=== PATIENT | male | born 1945 | race Caucasian/White ===

== ENCOUNTER 2021-01-15 01:57 | Inpatient (IN) ==
[2021-01-15] MEDS ORDERED: NS 0.9% 1000 ml BAG 1,000 ML IV ONE (02:15)
[2021-01-15 03:19] LABS: ABS Eosinophils 0.1 10^3/ul (0-0.6); ABS Lymphocytes 0.5 10^3/ul (1.0-4.8); ABS Monocytes 0.8 10^3/ul (0-0.8); ABS Neutrophils 7.7 10^3/ul (1.5-7.7); Eosinophil % 1.4 %; Hematocrit 39 % (42-52); Hemoglobin 13.4 g/dL (14.0-18.0); Mean Corpuscular HGB Conc 35 g/dL (31-36); Mean Corpuscular Hemoglobin 30 pg (27-31); Mean Corpuscular Volume 86 fL (80-94); Mean Platelet Volume 8.7 fL (7.4-10.4); Platelet Count 144 10^3/uL (150-450); Red Blood Count 4.53 10^6 /uL (4.18-5.48); Red Cell Distribution Width 15 % (10-15); White Blood Count 9.2 10^3/uL (3.5-10.8)
[2021-01-15 03:36] LABS: Albumin 3.2 g/dL (3.2-5.2); Albumin/Globulin Ratio 1.2 (1-3); C Reactive Protein 128.51 mg/L (<8.01); Calcium 8.4 mg/dL (8.6-10.3); EGFR African American 11.8 (>60); EGFR Non-African American 9.7 (>60); Globulin 2.7 g/dL (2-4); Potassium 4.7 mmol/L (3.5-5.0); Total Bilirubin 0.6 mg/dL (0.2-1.0); Total Protein 5.9 g/dL (6.4-8.9)
[2021-01-15] MEDS ORDERED: Lactated Ringers 1000 ml BAG 1,000 ML IV SCH ×2 (04:00→06:07)
[2021-01-15] MEDS ORDERED: Ondansetron 4 mg VIAL 2 MG/ML 2 ml VIAL IV PRN (04:55)
[2021-01-15 06:14] LABS: Urine Appearance Turbid; Urine Bilirubin Negative (Negative); Urine Blood 3+ (Negative); Urine Color Amber; Urine Glucose Negative (Negative); Urine Ketones Negative (Negative); Urine Nitrite Negative (Negative); Urine Protein 2+(100 mg/dL) (Negative); Urine Specific Gravity 1.009 (1.002-1.030); Urine Urobilinogen Negative (Negative)
[2021-01-15 06:28] LABS: Urine Bacteria 1+ (Absent); Urine Red Blood Cell 3+(>10/hpf) (Absent); Urine White Blood Cell 3+(>20/hpf) (Absent)
[2021-01-15] MEDS: Cefepime 2 GM in Dextrose 2 GM/50 ML BAG IV SCH (08:16)
[2021-01-15 08:47] LABS: ABS Eosinophils 0.1 10^3/ul (0-0.6); ABS Lymphocytes 0.6 10^3/ul (1.0-4.8); ABS Monocytes 0.7 10^3/ul (0-0.8); ABS Neutrophils 7.1 10^3/ul (1.5-7.7); Eosinophil % 1.4 %; Hematocrit 40 % (42-52); Hemoglobin 13.6 g/dL (14.0-18.0); Lymphocyte % 6.6 %; Mean Corpuscular HGB Conc 34 g/dL (31-36); Mean Corpuscular Hemoglobin 29 pg (27-31); Mean Corpuscular Volume 86 fL (80-94); Mean Platelet Volume 8.5 fL (7.4-10.4); Platelet Count 131 10^3/uL (150-450); Red Blood Count 4.67 10^6 /uL (4.18-5.48); Red Cell Distribution Width 15 % (10-15); White Blood Count 8.5 10^3/uL (3.5-10.8)
[2021-01-15 09:05] LABS: Albumin 3.2 g/dL (3.2-5.2); Albumin/Globulin Ratio 1.1 (1-3); C Reactive Protein 130.41 mg/L (<8.01); Calcium 8.3 mg/dL (8.6-10.3); EGFR African American 11.5 (>60); EGFR Non-African American 9.5 (>60); Globulin 2.8 g/dL (2-4); Potassium 4.7 mmol/L (3.5-5.0); Total Bilirubin 0.6 mg/dL (0.2-1.0)
[2021-01-15] MEDS: metroNIDAZOLE IV 500 MG/100ML 500 MG/100 ML BAG IVPB SCH ×2 (09:30→16:54)
[2021-01-16] MEDS: metroNIDAZOLE IV 500 MG/100ML 500 MG/100 ML BAG IVPB SCH ×3 (00:57→16:47)
[2021-01-16 06:22] LABS: Calcium 8.3 mg/dL (8.6-10.3); EGFR African American 10.5 (>60); EGFR Non-African American 8.6 (>60)
[2021-01-16 06:30] LABS: Potassium 5.2 mmol/L (3.5-5.0)
[2021-01-16 06:52] LABS: ABS Eosinophils 0.2 10^3/ul (0-0.6); ABS Lymphocytes 0.5 10^3/ul (1.0-4.8); ABS Monocytes 0.7 10^3/ul (0-0.8); ABS Neutrophils 6.2 10^3/ul (1.5-7.7); Eosinophil % 2.6 %; Hematocrit 39 % (42-52); Lymphocyte % 6.6 %; Mean Corpuscular HGB Conc 34 g/dL (31-36); Mean Corpuscular Hemoglobin 29 pg (27-31); Mean Corpuscular Volume 86 fL (80-94); Mean Platelet Volume 8.7 fL (7.4-10.4); Platelet Count 144 10^3/uL (150-450); Red Blood Count 4.48 10^6 /uL (4.18-5.48); Red Cell Distribution Width 15 % (10-15); White Blood Count 7.6 10^3/uL (3.5-10.8)
[2021-01-16] MEDS: Cefepime 2 GM in Dextrose 2 GM/50 ML BAG IV SCH (08:08)
[2021-01-16] MEDS ORDERED: NS 0.9% 500 ml BAG 500 ML IV ONE (08:46)
[2021-01-16] MEDS ORDERED: Mirabegron 50 mg ER TAB (NF) PO SCH (09:00)
[2021-01-17] MEDS: metroNIDAZOLE IV 500 MG/100ML 500 MG/100 ML BAG IVPB SCH ×3 (00:41→17:53)
[2021-01-17 06:17] LABS: Calcium 8.2 mg/dL (8.6-10.3); EGFR African American 11.3 (>60); EGFR Non-African American 9.3 (>60); Potassium 4.7 mmol/L (3.5-5.0)
[2021-01-17] MEDS: Cefepime 2 GM in Dextrose 2 GM/50 ML BAG IV SCH (10:17)
[2021-01-17 17:46] LABS: Venous Bicarbonate HCO3 20.8 mmol/L (24-28)
[2021-01-18] MEDS: metroNIDAZOLE IV 500 MG/100ML 500 MG/100 ML BAG IVPB SCH ×3 (01:18→17:05)
[2021-01-18 06:33] LABS: Calcium 8.3 mg/dL (8.6-10.3); EGFR African American 11.9 (>60); EGFR Non-African American 9.9 (>60)
[2021-01-18] MEDS: Cefepime 2 GM in Dextrose 2 GM/50 ML BAG IV SCH (09:15)
[2021-01-18] MEDS ORDERED: Bumetanide IV 0.25 MG/ML 4 ml VIAL (1 mg) SLOW PUSH ONE (14:32)
[2021-01-19] MEDS: metroNIDAZOLE IV 500 MG/100ML 500 MG/100 ML BAG IVPB SCH ×2 (01:16→09:47)
[2021-01-19] MEDS: Cefepime 2 GM in Dextrose 2 GM/50 ML BAG IV SCH (08:50)
[2021-01-19 09:20] LABS: ABS Eosinophils 0.3 10^3/ul (0-0.6); ABS Lymphocytes 0.5 10^3/ul (1.0-4.8); ABS Monocytes 0.5 10^3/ul (0-0.8); ABS Neutrophils 6.3 10^3/ul (1.5-7.7); Eosinophil % 3.7 %; Hematocrit 39 % (42-52); Hemoglobin 13.1 g/dL (14.0-18.0); Lymphocyte % 6.8 %; Mean Corpuscular HGB Conc 34 g/dL (31-36); Mean Corpuscular Hemoglobin 29 pg (27-31); Mean Corpuscular Volume 86 fL (80-94); Mean Platelet Volume 8.3 fL (7.4-10.4); Platelet Count 149 10^3/uL (150-450); Red Blood Count 4.51 10^6 /uL (4.18-5.48); Red Cell Distribution Width 15 % (10-15); White Blood Count 7.7 10^3/uL (3.5-10.8)
[2021-01-19 09:37] LABS: Calcium 8.6 mg/dL (8.6-10.3); EGFR African American 13.5 (>60); EGFR Non-African American 11.2 (>60)
[2021-01-19] MEDS ORDERED: Buffered Lidocaine 1% SYRIN 1 ml INTRADERM ONE (11:34)
[2021-01-19 15:29] VITALS: BP 119/69
[2021-01-19 21:03] LABS: C Reactive Protein 58.21 mg/L (<8.01)
[2021-01-20] MEDS ORDERED: cefTRIAXone 2 GM ADDV.VIAL 2 GM in NS 0.9% 100 ml BAG 100 ML IV SCH (08:00)
== END 2021-01-19 17:25 | disposition home or self-care (01) | DRG 372 ==
LOC: ED 01:57 → SSU 04:55
PROVIDERS: ADMIT Internal Medicine; ATTEND Internal Medicine

== ENCOUNTER 2021-01-28 08:23 | Observation (INO) ==
[2021-01-28 09:30] LABS: ABS Lymphocytes 0.4 10^3/ul (1.0-4.8); ABS Monocytes 0.3 10^3/ul (0-0.8); ABS Neutrophils 7.1 10^3/ul (1.5-7.7); Eosinophil % 0.2 %; Hematocrit 40 % (42-52); Hemoglobin 13.1 g/dL (14.0-18.0); Lymphocyte % 5.1 %; Mean Corpuscular HGB Conc 33 g/dL (31-36); Mean Corpuscular Hemoglobin 28 pg (27-31); Mean Corpuscular Volume 86 fL (80-94); Mean Platelet Volume 8.7 fL (7.4-10.4); Platelet Count 187 10^3/uL (150-450); Red Blood Count 4.61 10^6 /uL (4.18-5.48); Red Cell Distribution Width 15 % (10-15); White Blood Count 7.8 10^3/uL (3.5-10.8)
[2021-01-28 09:54] LABS: Albumin 3.5 g/dL (3.2-5.2); Albumin/Globulin Ratio 1.1 (1-3); C Reactive Protein 6.42 mg/L (<8.01); Calcium 8.8 mg/dL (8.6-10.3); EGFR African American 24.5 (>60); EGFR Non-African American 20.3 (>60); Globulin 3.1 g/dL (2-4); Potassium 4.5 mmol/L (3.5-5.0); Total Bilirubin 0.4 mg/dL (0.2-1.0); Total Protein 6.6 g/dL (6.4-8.9); Troponin I 0.01 ng/mL (<0.03)
[2021-01-28] MEDS ORDERED: Acetaminophen IV 1 GM/100ML 100 ML IV SCH (10:00)
[2021-01-28] MEDS ORDERED: Morphine 4 MG/ML VIAL (1 ml) IV ONE ×2 (11:18→15:32)
[2021-01-28 13:19] LABS: Urine Appearance Cloudy; Urine Bilirubin Negative (Negative); Urine Blood 3+ (Negative); Urine Color Yellow; Urine Glucose Negative (Negative); Urine Ketones Negative (Negative); Urine Nitrite Negative (Negative); Urine Protein 3+(>=500 mg/dL) (Negative); Urine Urobilinogen Negative (Negative)
[2021-01-28] MEDS ORDERED: Al Hydrox/Mg Hydrox/Simet LIQ 30 ML UDC PO ONE (13:19)
[2021-01-28 13:45] LABS: Urine Bacteria Absent (Absent); Urine Red Blood Cell 3+(>10/hpf) (Absent); Urine Squamous Epithelial Cell Present (Absent); Urine White Blood Cell 1+(6-10/hpf) (Absent)
[2021-01-28] MEDS ORDERED: cefTRIAXone 2 GM ADDV.VIAL 2 GM in NS 0.9% 100 ml BAG 100 ML IV SCH (19:30)
[2021-01-28] MEDS: Pantoprazole VIAL 40 MG VIAL IV SCH (20:39)
[2021-01-29] MEDS: Pantoprazole VIAL 40 MG VIAL IV SCH (04:59)
[2021-01-29 06:00] LABS: Hematocrit 40 % (42-52); Hemoglobin 13.1 g/dL (14.0-18.0); Mean Corpuscular HGB Conc 33 g/dL (31-36); Mean Corpuscular Hemoglobin 28 pg (27-31); Mean Corpuscular Volume 86 fL (80-94); Mean Platelet Volume 8.7 fL (7.4-10.4); Platelet Count 191 10^3/uL (150-450); Red Blood Count 4.62 10^6 /uL (4.18-5.48); Red Cell Distribution Width 15 % (10-15); White Blood Count 11.5 10^3/uL (3.5-10.8)
[2021-01-29 06:23] LABS: Calcium 8.6 mg/dL (8.6-10.3); EGFR African American 25.7 (>60); EGFR Non-African American 21.2 (>60); Magnesium 1.5 mg/dL (1.9-2.7); Potassium 4.4 mmol/L (3.5-5.0)
[2021-01-29] MEDS ORDERED: Magnesium Sulfate 2 gm BAG 2 GM/50 ML BAG IVPB ONE (08:56)
[2021-01-29] MEDS ORDERED: Aspirin EC 81 mg TAB.EC (enteric coated) PO SCH (09:00)
[2021-01-29] MEDS ORDERED: Mirabegron 50 mg ER TAB (NF) PO SCH (09:00)
[2021-01-29 11:48] VITALS: BP 99/61
[2021-01-29 13:15] LABS: ABS Basophils 0.1 10^3/ul (0-0.2); ABS Lymphocytes 0.5 10^3/ul (1.0-4.8); ABS Monocytes 0.8 10^3/ul (0-0.8); ABS Neutrophils 11.2 10^3/ul (1.5-7.7); Eosinophil % 0.1 %; Hematocrit 39 % (42-52); Lymphocyte % 3.6 %; Mean Corpuscular HGB Conc 33 g/dL (31-36); Mean Corpuscular Hemoglobin 28 pg (27-31); Mean Corpuscular Volume 86 fL (80-94); Mean Platelet Volume 8.6 fL (7.4-10.4); Platelet Count 192 10^3/uL (150-450); Red Blood Count 4.58 10^6 /uL (4.18-5.48); Red Cell Distribution Width 15 % (10-15); White Blood Count 12.6 10^3/uL (3.5-10.8)
== END 2021-01-29 15:43 | disposition home or self-care (01) ==
LOC: ED 08:23 → INTOOBSV 17:21 → MEDTELE 17:21
PROVIDERS: ADMIT Internal Medicine; ATTEND Internal Medicine

== ENCOUNTER 2022-11-19 15:47 | Inpatient (IN) ==
[2022-11-19 16:52] LABS: ABS Basophils 0.2 10^3/uL (0.0-0.1); ABS Lymphocytes 0.1 10^3/uL (1.0-4.8); ABS Monocytes 0.2 10^3/uL (0.0-1.1); ABS Neutrophils 13.1 10^3/uL (1.5-7.6); ABS Nucleated RBC 0.03 10^3/ul; Hematocrit 44.6 % (38-53); Hemoglobin 14.7 g/dL (13.2-16.3); Lymphocyte % 0.7 %; Mean Corpuscular Hemoglobin 28.5 pg (27-33); Mean Corpuscular Hgb Conc 33.1 g/dL (31-36); Mean Corpuscular Volume 86.1 fL (80-97); Mean Platelet Volume 8.9 fL (7.5-11.2); Nucleated Red Blood Cells % 0.2 /100 WBC (0.0-0.4); Platelet Count 57 10^3/uL (150-450); Red Blood Count 5.18 10^6/uL (4.06-5.63); Red Cell Distribution Width 19.1 % (12-17); White Blood Count 13.5 10^3/uL (3.6-10.2)
[2022-11-19 17:06] LABS: ALT 17 U/L (7-52); AST 20 U/L (13-39); Albumin 2.9 g/dL (3.2-5.2); Albumin/Globulin Ratio 1.3 (1-3); Alkaline Phosphatase 53 U/L (35-149); Anion Gap 8 mmol/L (2-16); Blood Urea Nitrogen 66 mg/dL (6-24); CO2 Carbon Dioxide 19 mmol/L (22-32); Calcium 8.5 mg/dL (8.6-10.3); Chloride 114 mmol/L (101-111); Creatinine, Serum 2.65 mg/dL (0.67-1.17); Globulin 2.2 g/dL (2-4); Glucose 115 mg/dL (70-100); Lipase < 10 U/L (11.0-82.0); Magnesium 1.7 mg/dL (1.9-2.7); Phosphorus 4.4 mg/dL (2.5-5.0); Potassium 4.8 mmol/L (3.5-5.0); Sodium 141 mmol/L (135-145); Total Protein 5.1 g/dL (6.4-8.9); eGFR CKD-EPI 23.8 (>60)
[2022-11-19 18:05] LABS: Urine Appearance Cloudy; Urine Specific Gravity 1.014 (1.002-1.030)
[2022-11-19 18:06] LABS: Urine Color Red
[2022-11-19] MEDS ORDERED: Piperacillin/Tazobac ADVAN 3.375 GM in NS 0.9% 100 ml BAG 100 ML IV ONE (18:36)
[2022-11-19] MEDS ORDERED: Piperacillin/Tazobac 3.375 GM ADVAN ONE (19:24)
[2022-11-19] MEDS ORDERED: Prothrombin Complex Conc. DOSE = Units Factor IX (nine) IV SLOW PU ONE (19:50)
[2022-11-19] MEDS ORDERED: Ondansetron 4 mg VIAL 2 MG/ML 2 ml VIAL IV PRN (20:32)
[2022-11-19] MEDS ORDERED: Phenylephrine 40 mcg/mL 10mL (400mcg) SYRINGE ONE (20:35)
[2022-11-19] MEDS ORDERED: Rocuronium 50 mg VIAL 10 mg/ml 5 ml VIAL (50 mg) ONE ×2 (20:35→23:01)
[2022-11-19] MEDS ORDERED: Dexamethasone IV 4 MG/ML VIAL 1 ml VIAL ONE (20:35)
[2022-11-19] MEDS ORDERED: Ondansetron 4 mg VIAL 2 MG/ML 2 ml VIAL ONE (20:35)
[2022-11-19] MEDS ORDERED: Propofol 10 MG/ML 20 ML BTL ONE (20:35)
[2022-11-19] MEDS ORDERED: Lidocaine 2% PF 5 ML VIAL ONE (20:35)
[2022-11-19] MEDS ORDERED: Midazolam 5 mg/5 ml VIAL 1 mg/ml 5 ml VIAL (5 mg) ONE (20:35)
[2022-11-19] MEDS ORDERED: fentaNYL 250 mcg/5 ml 50 MCG/ML 5 ml VIAL (250 MCG) ONE (20:36)
[2022-11-19] MEDS ORDERED: Ketamine HCL 50 mg/ml 10 ml VIAL (500 MG) ONE (20:36)
[2022-11-19] MEDS ORDERED: Magnesium Sulfate 2 gm BAG 2 GM/50 ML BAG IVPB ONE (20:56)
[2022-11-19] MEDS ORDERED: Hydrocortisone INJ 100 MG/2ML 2 ML VIAL IV SCH (21:00)
[2022-11-19] MEDS ORDERED: Zosyn per Pharmacy NOTE FOLLOW UP SCH (21:00)
[2022-11-19] MEDS ORDERED: Hydrocortisone INJ 100 MG VIAL IV SCH (21:02)
[2022-11-19] MEDS ORDERED: Bupivacaine 0.25% EPI 200,000 30 ML SDV ONE (21:31)
[2022-11-19] MEDS ORDERED: Phenylephrine IV 10 MG/ML 1 ml VIAL ONE (22:48)
[2022-11-19] MEDS ORDERED: Acetaminophen IV 1 GM/100ML 1,000 MG/100 ML BAG IV ONE (23:13)
[2022-11-19] MEDS ORDERED: Furosemide 20 mg/2 ml IV VIAL ONE (23:21)
[2022-11-19] MEDS ORDERED: Naloxone 0.4 mg VIAL 0.4 mg/ml 1 ml VIAL IV PRN (23:58)
[2022-11-19] MEDS ORDERED: fentaNYL 100 mcg/2 ml 50 MCG/ML VIAL IV PRN (23:58)
[2022-11-19] MEDS ORDERED: HYDROmorphone 1 MG/1 ML SYRINGE IV PRN (23:58)
[2022-11-20] MEDS ORDERED: ZOSYN 3.375 GM Q8H per EXTENDED INFUSION IV SCH
[2022-11-20] MEDS ORDERED: HYDROmorphone 0.5 MG/0.5 ML SYRINGE ONE (00:10)
[2022-11-20] MEDS ORDERED: Naloxone 0.4 mg VIAL 0.4 mg/ml 1 ml VIAL IV PUSH PRN (00:55)
[2022-11-20] MEDS ORDERED: HYDROmorphone PCA 20 MG/20 ML PCA.SYRING PCA SCH (01:00)
[2022-11-20] MEDS ORDERED: Magnesium Sulfate 2 gm BAG 2 GM/50 ML BAG IVPB ONE (01:01)
[2022-11-20] MEDS ORDERED: Hydrocortisone INJ 100 MG VIAL IV ONE (02:00)
[2022-11-20] MEDS: ZOSYN 3.375 GM Q8H per EXTENDED INFUSION IV SCH ×3 (02:20→18:04)
[2022-11-20 06:00] LABS: ABS Basophils 0.1 10^3/uL (0.0-0.1); ABS Lymphocytes 0.1 10^3/uL (1.0-4.8); ABS Monocytes 0.2 10^3/uL (0.0-1.1); ABS Neutrophils 9.1 10^3/uL (1.5-7.6); ABS Nucleated RBC 0.01 10^3/ul; Hematocrit 42.6 % (38-53); Lymphocyte % 0.6 %; Mean Corpuscular Hemoglobin 28.8 pg (27-33); Mean Corpuscular Hgb Conc 32.9 g/dL (31-36); Mean Corpuscular Volume 87.6 fL (80-97); Nucleated Red Blood Cells % 0.1 /100 WBC (0.0-0.4); Platelet Count 48 10^3/uL (150-450); Red Blood Count 4.86 10^6/uL (4.06-5.63); Red Cell Distribution Width 20.1 % (12-17); White Blood Count 9.4 10^3/uL (3.6-10.2)
[2022-11-20 06:14] LABS: Calcium 7.8 mg/dL (8.6-10.3); Creatinine, Serum 2.67 mg/dL (0.67-1.17); Magnesium 2.1 mg/dL (1.9-2.7); Potassium 4.8 mmol/L (3.5-5.0); eGFR CKD-EPI 23.6 (>60)
[2022-11-20] MEDS: Hydrocortisone INJ 100 MG VIAL IV SCH ×2 (09:48→18:04)
[2022-11-20] MEDS: HYDROmorphone 1 MG/1 ML SYRINGE IV SLOW PU PRN (15:33)
[2022-11-21] MEDS: Hydrocortisone INJ 100 MG VIAL IV SCH ×2 (02:27→11:30)
[2022-11-21] MEDS: ZOSYN 3.375 GM Q8H per EXTENDED INFUSION IV SCH ×3 (02:30→18:21)
[2022-11-21] MEDS: HYDROmorphone 1 MG/1 ML SYRINGE IV SLOW PU PRN (07:42)
[2022-11-21 08:10] LABS: ABS Lymphocytes 0.1 10^3/uL (1.0-4.8); ABS Monocytes 0.2 10^3/uL (0.0-1.1); ABS Neutrophils 12.1 10^3/uL (1.5-7.6); ABS Nucleated RBC 0.01 10^3/ul; Hematocrit 42.7 % (38-53); Hemoglobin 14.1 g/dL (13.2-16.3); Lymphocyte % 1.1 %; Mean Corpuscular Hemoglobin 28.7 pg (27-33); Mean Corpuscular Volume 86.8 fL (80-97); Mean Platelet Volume 9.4 fL (7.5-11.2); Nucleated Red Blood Cells % 0.1 /100 WBC (0.0-0.4); Platelet Count 59 10^3/uL (150-450); Red Blood Count 4.92 10^6/uL (4.06-5.63); Red Cell Distribution Width 19.8 % (12-17); White Blood Count 12.5 10^3/uL (3.6-10.2)
[2022-11-21 08:22] LABS: Calcium 8.5 mg/dL (8.6-10.3); Creatinine, Serum 3.24 mg/dL (0.67-1.17); Magnesium 2.2 mg/dL (1.9-2.7); Potassium 4.6 mmol/L (3.5-5.0); eGFR CKD-EPI 18.7 (>60)
[2022-11-21] MEDS ORDERED: Fluconazole SUSP ORALSYR 40 MG/ML PO ONE (09:43)
[2022-11-21] MEDS ORDERED: Lactated Ringers 1000 ml BAG 1,000 ML IV SCH ×2 (10:00)
[2022-11-21] MEDS ORDERED: NS 0.9% 1000 ml BAG 1,000 ML IV SCH ×2 (11:15→22:00)
[2022-11-21] MEDS ORDERED: Sulfamethox/Trimethoprim SS TAB 400/80 mg PO SCH (21:00)
[2022-11-22] MEDS: ZOSYN 3.375 GM Q8H per EXTENDED INFUSION IV SCH ×2 (01:46→09:46)
[2022-11-22 07:33] LABS: ABS Lymphocytes 0.1 10^3/uL (1.0-4.8); ABS Monocytes 0.3 10^3/uL (0.0-1.1); ABS Neutrophils 11.4 10^3/uL (1.5-7.6); ABS Nucleated RBC 0.01 10^3/ul; Hematocrit 39.6 % (38-53); Lymphocyte % 0.9 %; Mean Corpuscular Hemoglobin 28.4 pg (27-33); Mean Corpuscular Hgb Conc 32.8 g/dL (31-36); Mean Corpuscular Volume 86.4 fL (80-97); Nucleated Red Blood Cells % 0.1 /100 WBC (0.0-0.4); Platelet Count 59 10^3/uL (150-450); Red Blood Count 4.59 10^6/uL (4.06-5.63); Red Cell Distribution Width 19.9 % (12-17); White Blood Count 11.8 10^3/uL (3.6-10.2)
[2022-11-22 07:47] LABS: Creatinine, Serum 3.37 mg/dL (0.67-1.17); Magnesium 2.2 mg/dL (1.9-2.7); Potassium 4.4 mmol/L (3.5-5.0); eGFR CKD-EPI 17.8 (>60)
[2022-11-22] MEDS: Linezolid 600 MG IVPREMIX(*) 600 MG/300 ML BAG IVPB SCH (15:10)
[2022-11-22] MEDS ORDERED: NS 0.9% 1000 ml BAG 1,000 ML IV SCH (15:30)
[2022-11-22] MEDS ORDERED: Sulfamethox/Trimethoprim SS TAB 400/80 mg PO SCH (21:00)
[2022-11-23] MEDS: Linezolid 600 MG IVPREMIX(*) 600 MG/300 ML BAG IVPB SCH (03:02)
[2022-11-23 06:15] LABS: ABS Lymphocytes 0.1 10^3/uL (1.0-4.8); ABS Monocytes 0.3 10^3/uL (0.0-1.1); ABS Neutrophils 9.1 10^3/uL (1.5-7.6); ABS Nucleated RBC 0.01 10^3/ul; Hematocrit 37.2 % (38-53); Hemoglobin 12.4 g/dL (13.2-16.3); Lymphocyte % 1.5 %; Mean Corpuscular Hemoglobin 28.3 pg (27-33); Mean Corpuscular Hgb Conc 33.2 g/dL (31-36); Mean Corpuscular Volume 85.3 fL (80-97); Mean Platelet Volume 8.8 fL (7.5-11.2); Nucleated Red Blood Cells % 0.1 /100 WBC (0.0-0.4); Platelet Count 60 10^3/uL (150-450); Red Blood Count 4.37 10^6/uL (4.06-5.63); White Blood Count 9.6 10^3/uL (3.6-10.2)
[2022-11-23 07:24] LABS: Creatinine, Serum 3.48 mg/dL (0.67-1.17); Magnesium 2.3 mg/dL (1.9-2.7); Potassium 4.6 mmol/L (3.5-5.0); eGFR CKD-EPI 17.1 (>60)
[2022-11-23] MEDS ORDERED: NS 0.9% 1000 ml BAG 1,000 ML IV SCH (07:30)
[2022-11-23] MEDS: NS 0.45% 1000 ml BAG 1,000 ML IV SCH ×2 (11:10→22:36)
[2022-11-23] MEDS ORDERED: Cefepime ADVAN 1 GM in NS 0.9% 50 ML 50 ML IVPB SCH (14:00)
[2022-11-23] MEDS: Cefepime 1 GM in Dextrose 1 GM/50 ML BAG IV SCH (14:39)
[2022-11-23 20:08] LABS: Urine Appearance Cloudy; Urine Bilirubin Negative (Negative); Urine Blood 3+ (Negative); Urine Color Yellow; Urine Glucose 3+(>=500 mg/dL) (Negative); Urine Ketones Negative (Negative); Urine Nitrite Negative (Negative); Urine Protein 2+(100 mg/dL) (Negative); Urine Specific Gravity 1.013 (1.002-1.030); Urine Urobilinogen Negative (Negative)
[2022-11-23 20:16] LABS: Urine Bacteria 1+ (Absent); Urine Red Blood Cell 3+(>10/hpf) (Absent); Urine Squamous Epithelial Cell Present (Absent); Urine White Blood Cell Absent (Absent)
[2022-11-24 06:56] LABS: ABS Lymphocytes 0.2 10^3/uL (1.0-4.8); ABS Monocytes 0.3 10^3/uL (0.0-1.1); ABS Neutrophils 7.7 10^3/uL (1.5-7.6); Hemoglobin 12.2 g/dL (13.2-16.3); Lymphocyte % 2.3 %; Mean Corpuscular Hemoglobin 28.7 pg (27-33); Mean Corpuscular Volume 86.9 fL (80-97); Mean Platelet Volume 8.6 fL (7.5-11.2); Platelet Count 61 10^3/uL (150-450); Red Blood Count 4.26 10^6/uL (4.06-5.63); Red Cell Distribution Width 18.7 % (12-17); White Blood Count 8.2 10^3/uL (3.6-10.2)
[2022-11-24 07:14] LABS: Calcium 7.8 mg/dL (8.6-10.3); Creatinine, Serum 3.4 mg/dL (0.67-1.17); Magnesium 2.2 mg/dL (1.9-2.7); Potassium 4.5 mmol/L (3.5-5.0); eGFR CKD-EPI 17.6 (>60)
[2022-11-24] MEDS ORDERED: D5W 1/2 NS 1000 ml BAG 1,000 ML IV SCH ×2 (09:00→09:21)
[2022-11-24] MEDS ORDERED: Albuterol HFA INHALER 8 gm MDI INH PRN (11:20)
[2022-11-24] MEDS: Cefepime 1 GM in Dextrose 1 GM/50 ML BAG IV SCH (14:19)
[2022-11-25 06:04] LABS: ABS Lymphocytes 0.3 10^3/uL (1.0-4.8); ABS Monocytes 0.3 10^3/uL (0.0-1.1); ABS Neutrophils 7.1 10^3/uL (1.5-7.6); Eosinophil % 0.1 %; Hematocrit 37.2 % (38-53); Hemoglobin 12.4 g/dL (13.2-16.3); Lymphocyte % 3.3 %; Mean Corpuscular Hemoglobin 28.3 pg (27-33); Mean Corpuscular Hgb Conc 33.2 g/dL (31-36); Mean Corpuscular Volume 85.2 fL (80-97); Mean Platelet Volume 9.5 fL (7.5-11.2); Nucleated Red Blood Cells % 0.1 /100 WBC (0.0-0.4); Platelet Count 73 10^3/uL (150-450); Red Blood Count 4.37 10^6/uL (4.06-5.63); White Blood Count 7.7 10^3/uL (3.6-10.2)
[2022-11-25 06:32] LABS: Calcium 7.8 mg/dL (8.6-10.3); Creatinine, Serum 3.15 mg/dL (0.67-1.17); Magnesium 2.1 mg/dL (1.9-2.7); Potassium 4.7 mmol/L (3.5-5.0); eGFR CKD-EPI 19.3 (>60)
[2022-11-25] MEDS: Cefepime 1 GM in Dextrose 1 GM/50 ML BAG IV SCH (14:38)
[2022-11-25 19:46] LABS: HIT ELISA < 0.050 OD (<0.400); Heparin PF4 Antibody Interp Negative (Negative)
[2022-11-26 05:52] LABS: ABS Lymphocytes 0.3 10^3/uL (1.0-4.8); ABS Monocytes 0.3 10^3/uL (0.0-1.1); ABS Neutrophils 6.7 10^3/uL (1.5-7.6); Eosinophil % 0.6 %; Hematocrit 36.7 % (38-53); Hemoglobin 12.3 g/dL (13.2-16.3); Lymphocyte % 4.7 %; Mean Corpuscular Hemoglobin 28.8 pg (27-33); Mean Corpuscular Hgb Conc 33.3 g/dL (31-36); Mean Corpuscular Volume 86.4 fL (80-97); Mean Platelet Volume 8.8 fL (7.5-11.2); Platelet Count 72 10^3/uL (150-450); Red Blood Count 4.26 10^6/uL (4.06-5.63); Red Cell Distribution Width 18.8 % (12-17); White Blood Count 7.4 10^3/uL (3.6-10.2)
[2022-11-26 06:05] LABS: Calcium 7.9 mg/dL (8.6-10.3); Creatinine, Serum 2.8 mg/dL (0.67-1.17); Magnesium 1.9 mg/dL (1.9-2.7); Potassium 4.8 mmol/L (3.5-5.0); eGFR CKD-EPI 22.3 (>60)
[2022-11-26] MEDS: Cefepime 1 GM in Dextrose 1 GM/50 ML BAG IV SCH (13:33)
[2022-11-27 06:05] LABS: ABS Eosinophils 0.1 10^3/uL (0.0-0.5); ABS Lymphocytes 0.3 10^3/uL (1.0-4.8); ABS Monocytes 0.2 10^3/uL (0.0-1.1); ABS Neutrophils 7.8 10^3/uL (1.5-7.6); Eosinophil % 0.7 %; Hematocrit 36.5 % (38-53); Hemoglobin 12.3 g/dL (13.2-16.3); Lymphocyte % 3.8 %; Mean Corpuscular Hemoglobin 28.5 pg (27-33); Mean Corpuscular Hgb Conc 33.7 g/dL (31-36); Mean Corpuscular Volume 84.6 fL (80-97); Mean Platelet Volume 8.9 fL (7.5-11.2); Platelet Count 81 10^3/uL (150-450); Red Blood Count 4.31 10^6/uL (4.06-5.63); Red Cell Distribution Width 18.9 % (12-17); White Blood Count 8.4 10^3/uL (3.6-10.2)
[2022-11-27 06:28] LABS: Calcium 7.9 mg/dL (8.6-10.3); Creatinine, Serum 2.62 mg/dL (0.67-1.17); Magnesium 1.9 mg/dL (1.9-2.7); eGFR CKD-EPI 24.1 (>60)
[2022-11-27] MEDS: Cefepime 1 GM in Dextrose 1 GM/50 ML BAG IV SCH (13:40)
[2022-11-28 06:51] LABS: ABS Eosinophils 0.1 10^3/uL (0.0-0.5); ABS Lymphocytes 0.5 10^3/uL (1.0-4.8); ABS Monocytes 0.2 10^3/uL (0.0-1.1); Eosinophil % 0.7 %; Hematocrit 35.9 % (38-53); Lymphocyte % 4.8 %; Mean Corpuscular Hemoglobin 28.8 pg (27-33); Mean Corpuscular Hgb Conc 33.4 g/dL (31-36); Mean Corpuscular Volume 86.3 fL (80-97); Mean Platelet Volume 8.6 fL (7.5-11.2); Platelet Count 90 10^3/uL (150-450); Red Blood Count 4.16 10^6/uL (4.06-5.63); Red Cell Distribution Width 18.5 % (12-17); White Blood Count 9.8 10^3/uL (3.6-10.2)
[2022-11-28 07:01] LABS: Calcium 7.8 mg/dL (8.6-10.3); Creatinine, Serum 2.41 mg/dL (0.67-1.17); Magnesium 1.8 mg/dL (1.9-2.7); Potassium 5.1 mmol/L (3.5-5.0); eGFR CKD-EPI 26.6 (>60)
[2022-11-28] MEDS ORDERED: Magnesium Sulfate 2 gm BAG 2 GM/50 ML BAG IVPB ONE (07:10)
[2022-11-28] MEDS ORDERED: Sulfamethox/Trimethoprim SS TAB 400/80 mg PO SCH (09:00)
[2022-11-29 06:13] LABS: ABS Eosinophils 0.1 10^3/uL (0.0-0.5); ABS Lymphocytes 0.4 10^3/uL (1.0-4.8); ABS Monocytes 0.3 10^3/uL (0.0-1.1); ABS Nucleated RBC 0.01 10^3/ul; Eosinophil % 0.5 %; Hemoglobin 12.4 g/dL (13.2-16.3); Lymphocyte % 4.1 %; Mean Corpuscular Hemoglobin 28.4 pg (27-33); Mean Corpuscular Hgb Conc 33.3 g/dL (31-36); Mean Platelet Volume 8.2 fL (7.5-11.2); Nucleated Red Blood Cells % 0.1 /100 WBC (0.0-0.4); Platelet Count 90 10^3/uL (150-450); Red Blood Count 4.35 10^6/uL (4.06-5.63); Red Cell Distribution Width 18.6 % (12-17); White Blood Count 9.8 10^3/uL (3.6-10.2)
[2022-11-29 06:29] LABS: Calcium 7.9 mg/dL (8.6-10.3); Creatinine, Serum 2.23 mg/dL (0.67-1.17); Magnesium 1.9 mg/dL (1.9-2.7); Potassium 5.2 mmol/L (3.5-5.0); eGFR CKD-EPI 29.2 (>60)
[2022-11-29] MEDS ORDERED: Patiromer POWDER 8.4 GM PAK PO ONE (10:00)
[2022-11-29] MEDS ORDERED: Magnesium Sulfate IV 1GM/100ML 1 GM/100 ML BAG IV ONE (10:07)
[2022-11-29 14:10] VITALS: BP 127/86
== END 2022-11-29 15:25 | DRG 329 ==
LOC: ED 15:47 → SUATTDRO 20:32 → ICU 20:32 → EDHOLD 20:32 → ED 21:34 → ICU 11-20 02:09 → SSU 11-20 15:26
PROVIDERS: ADMIT Internal Medicine Critical Care Medicine; ATTEND Hospitalist

== ENCOUNTER 2022-11-29 12:14 | Inpatient (IN) ==
[2022-11-29] MEDS ORDERED: Magnesium Hydroxide LIQ 30 ML UDC PO PRN (16:34)
[2022-11-29] MEDS ORDERED: Senna TAB 8.6 mg TAB PO PRN (16:34)
[2022-11-30 06:49] LABS: ABS Eosinophils 0.1 10^3/uL (0.0-0.5); ABS Lymphocytes 0.6 10^3/uL (1.0-4.8); ABS Monocytes 0.5 10^3/uL (0.0-1.1); ABS Neutrophils 9.4 10^3/uL (1.5-7.6); ABS Nucleated RBC 0.02 10^3/ul; Eosinophil % 0.9 %; Hematocrit 38.1 % (38-53); Hemoglobin 12.6 g/dL (13.2-16.3); Lymphocyte % 5.4 %; Mean Corpuscular Hemoglobin 28.7 pg (27-33); Mean Corpuscular Hgb Conc 33.1 g/dL (31-36); Mean Corpuscular Volume 86.9 fL (80-97); Mean Platelet Volume 8.3 fL (7.5-11.2); Nucleated Red Blood Cells % 0.2 /100 WBC (0.0-0.4); Platelet Count 98 10^3/uL (150-450); Red Blood Count 4.38 10^6/uL (4.06-5.63); White Blood Count 10.6 10^3/uL (3.6-10.2)
[2022-11-30 07:05] LABS: Albumin 2.6 g/dL (3.2-5.2); Albumin/Globulin Ratio 1.4 (1-3); Calcium 8.1 mg/dL (8.6-10.3); Creatinine, Serum 2.18 mg/dL (0.67-1.17); Globulin 1.8 g/dL (2-4); Potassium 5.2 mmol/L (3.5-5.0); Total Bilirubin 0.5 mg/dL (0.2-1.0); Total Protein 4.4 g/dL (6.4-8.9); eGFR CKD-EPI 30.1 (>60)
[2022-11-30] MEDS ORDERED: Sulfamethox/Trimethoprim DS TAB 800/160 mg PO SCH (09:00)
[2022-11-30] MEDS: Sulfamethox/Trimethoprim SS TAB 400/80 mg PO SCH (09:32)
[2022-11-30] MEDS: CMCS: Solifenacin 5 mg TAB (NF) PO SCH (09:32)
[2022-12-01] MEDS: CMCS: Solifenacin 5 mg TAB (NF) PO SCH (08:16)
[2022-12-02 06:14] LABS: Hematocrit 36.7 % (38-53); Hemoglobin 12.1 g/dL (13.2-16.3); Mean Corpuscular Hemoglobin 28.1 pg (27-33); Mean Corpuscular Hgb Conc 33.1 g/dL (31-36); Mean Corpuscular Volume 85.2 fL (80-97); Mean Platelet Volume 8.4 fL (7.5-11.2); Platelet Count 130 10^3/uL (150-450); Red Blood Count 4.32 10^6/uL (4.06-5.63); Red Cell Distribution Width 18.8 % (12-17); White Blood Count 10.2 10^3/uL (3.6-10.2)
[2022-12-02 06:31] LABS: Albumin 2.5 g/dL (3.2-5.2); Albumin/Globulin Ratio 1.4 (1-3); Calcium 7.7 mg/dL (8.6-10.3); Creatinine, Serum 2.3 mg/dL (0.67-1.17); Globulin 1.8 g/dL (2-4); Potassium 5.1 mmol/L (3.5-5.0); Total Bilirubin 0.4 mg/dL (0.2-1.0); Total Protein 4.3 g/dL (6.4-8.9); eGFR CKD-EPI 28.2 (>60)
[2022-12-02 06:53] LABS: ABS Lymphocytes 0.6 10^3/uL (1.0-4.8); ABS Monocytes 0.8 10^3/uL (0.0-1.1); ABS Neutrophils 8.8 10^3/uL (1.5-7.6); ABS Nucleated RBC 0.01 10^3/ul; Eosinophil % 0.2 %; Lymphocyte % 5.5 %; Nucleated Red Blood Cells % 0.1 /100 WBC (0.0-0.4)
[2022-12-02] MEDS: CMCS: Solifenacin 5 mg TAB (NF) PO SCH (08:22)
[2022-12-02] MEDS: Sulfamethox/Trimethoprim SS TAB 400/80 mg PO SCH (08:22)
[2022-12-03] MEDS: CMCS: Solifenacin 5 mg TAB (NF) PO SCH (09:27)
[2022-12-04] MEDS: CMCS: Solifenacin 5 mg TAB (NF) PO SCH (08:16)
[2022-12-05] MEDS: CMCS: Solifenacin 5 mg TAB (NF) PO SCH (07:30)
[2022-12-05] MEDS: Sulfamethox/Trimethoprim SS TAB 400/80 mg PO SCH (07:30)
[2022-12-05 07:36] LABS: Creatinine, Serum 2.05 mg/dL (0.67-1.17); Potassium 5.2 mmol/L (3.5-5.0); eGFR CKD-EPI 32.4 (>60)
[2022-12-05] MEDS ORDERED: Sodium Polystyrene ORAL.SUSP 15 GM/60 ML BTL PO ONE (08:10)
[2022-12-06] MEDS: CMCS: Solifenacin 5 mg TAB (NF) PO SCH (07:35)
[2022-12-07 06:40] LABS: Hematocrit 36.6 % (38-53); Hemoglobin 12.3 g/dL (13.2-16.3); Mean Corpuscular Hemoglobin 29.1 pg (27-33); Mean Corpuscular Hgb Conc 33.6 g/dL (31-36); Mean Corpuscular Volume 86.6 fL (80-97); Mean Platelet Volume 7.9 fL (7.5-11.2); Platelet Count 122 10^3/uL (150-450); Red Blood Count 4.23 10^6/uL (4.06-5.63); Red Cell Distribution Width 20.6 % (12-17)
[2022-12-07 06:59] LABS: Albumin 2.7 g/dL (3.2-5.2); Albumin/Globulin Ratio 1.4 (1-3); Creatinine, Serum 2.15 mg/dL (0.67-1.17); Potassium 4.8 mmol/L (3.5-5.0); Total Bilirubin 0.6 mg/dL (0.2-1.0); Total Protein 4.7 g/dL (6.4-8.9); eGFR CKD-EPI 30.6 (>60)
[2022-12-07 07:30] LABS: ABS Lymphocytes 0.8 10^3/uL (1.0-4.8); ABS Monocytes 0.6 10^3/uL (0.0-1.1); ABS Neutrophils 7.6 10^3/uL (1.5-7.6); Eosinophil % 0.2 %; Lymphocyte % 8.7 %
[2022-12-07] MEDS: CMCS: Solifenacin 5 mg TAB (NF) PO SCH (07:30)
[2022-12-07] MEDS: Sulfamethox/Trimethoprim SS TAB 400/80 mg PO SCH (07:30)
[2022-12-08] MEDS: CMCS: Solifenacin 5 mg TAB (NF) PO SCH (09:31)
[2022-12-09 06:59] LABS: Calcium 7.7 mg/dL (8.6-10.3); Creatinine, Serum 2.13 mg/dL (0.67-1.17); Potassium 4.6 mmol/L (3.5-5.0); eGFR CKD-EPI 30.9 (>60)
[2022-12-09] MEDS: CMCS: Solifenacin 5 mg TAB (NF) PO SCH (08:22)
[2022-12-09] MEDS: Sulfamethox/Trimethoprim SS TAB 400/80 mg PO SCH (08:22)
[2022-12-10] MEDS: CMCS: Solifenacin 5 mg TAB (NF) PO SCH (08:56)
[2022-12-11] MEDS: CMCS: Solifenacin 5 mg TAB (NF) PO SCH (08:16)
[2022-12-11] MEDS: Dextran 70/Hypromellose Tears Eye Drops 15 ml BTL (for Artificials Tears) RIGHT EYE PRN ×4 (13:19→20:02)
[2022-12-12] MEDS: Dextran 70/Hypromellose Tears Eye Drops 15 ml BTL (for Artificials Tears) RIGHT EYE PRN ×4 (05:19→14:37)
[2022-12-12 06:39] LABS: Calcium 8.1 mg/dL (8.6-10.3); Creatinine, Serum 2.09 mg/dL (0.67-1.17); Potassium 4.8 mmol/L (3.5-5.0); eGFR CKD-EPI 31.6 (>60)
[2022-12-12] MEDS: Sulfamethox/Trimethoprim SS TAB 400/80 mg PO SCH (09:51)
[2022-12-12] MEDS: CMCS: Solifenacin 5 mg TAB (NF) PO SCH (09:52)
[2022-12-13 04:44] VITALS: BP 129/86
[2022-12-13] MEDS: CMCS: Solifenacin 5 mg TAB (NF) PO SCH (09:03)
== END 2022-12-13 12:15 | disposition home or self-care (01) | DRG 92 ==
LOC: PMRU 15:45
PROVIDERS: ADMIT Physical Medicine & Rehabilitation; ATTEND Physical Medicine & Rehabilitation